=== PATIENT | male | born 1995 | race Caucasian/White ===

== ENCOUNTER → 2022-01-26 | Outpatient (CLI) | payer OTHER ==
[~2022-01-26] MED LIST: BACTROBAN OINT22 GM EXT; IBUPROFEN600 MG PO; KEFLEX CAP 500500 MG PO; NORCO 5-325 TA1 EACH PO
== END ==
LOC: KOH-I 10:35
DX: S40.012A Contusion of left shoulder, initial encounter (principal)
CPT/HCPCS: 73030